=== PATIENT | male | born 1995 | race African-American/Black ===

== ENCOUNTER 2019-10-10 20:18 | Emergency (ER) | payer OTHER ==
[2019-10-10 20:57] VITALS: BP 109/71
[2019-10-10] MEDS ORDERED: Acetaminophen TAB* 325 MG PO ONE (21:37)
[2019-10-10] MEDS ORDERED: Ibuprofen TAB* 400 MG PO ONE (21:37)
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
--- NOTE | 2019-10-11 13:59 | UC ---
- Progress Note Progress Note: xray report lumbar spine : IMPRESSION: UNREMARKABLE RADIOGRAPHS OF THE LUMBAR SPINE Course/Dx - Diagnoses Provider Diagnoses: Concussion, Lumbar strain Discharge ED - Sign-Out/Discharge Documenting (check all that apply): Patient Departure All imaging exams completed and their final reports reviewed: Yes - Discharge Plan Condition: Good Disposition: HOME Patient Education Materials: Concussion (ED), Low Back Strain (ED) Referrals: [facility] [place] [facility] [Outside] - 2 Days Bo Harman MD [Medical Doctor] - 2 Days No Primary Care Phys,NOPCP [Primary Care Provider] - - Billing Disposition and Condition Condition: GOOD Disposition: Home
== END 2019-10-10 21:55 | disposition home or self-care (01) ==
LOC: UCCORT 20:18
DX: S06.0X0A Concussion without loss of consciousness, initial encounter (principal); S39.012A Strain of muscle, fascia and tendon of lower back, initial encounter; V89.2XXA Person injured in unspecified motor-vehicle accident, traffic, initial encounter; Y92.411 Interstate highway as the place of occurrence of the external cause
CPT/HCPCS: 72110; 99202; A9270-GY; G0463